=== PATIENT | male | born 1980 | race Caucasian/White ===

== ENCOUNTER 2016-12-05 19:46 | Emergency (ER) | payer OTHER ==
[~2016-12-05] VITALS: Ht 167.6 cm; Wt 100.0 kg
[~2016-12-05 19:46] MED LIST: DIPH25CA6 PO; PRED20TA PO
[2016-12-05 20:02] VITALS: Ht 167.6 cm; Wt 100.0 kg
[2016-12-05] MEDS ORDERED: BEN50 PO (20:15)
[2016-12-05] MEDS ORDERED: POLY10DR19 BOTH EYES (20:15)
--- NOTE | 2016-12-05 20:29 | ERD ---
ER Documentation Chief Complaint Date/Time DATE: 12/05/16 TIME: 20:19 Chief Complaint redness both eyes, more on right eye x 1 day, states was working on trash HPI 36-year-old male presents to ED with chief complaint of gradual onset bilateral eye redness and discomfort 1 day. Patient states symptoms began after he was taking out the trash and felt him drops of trash going to his eyes. Then he noticed bilateral scleral erythema, worse on the right side. He's also noticed yellow purulent discharge, crusting, and pruritus. He denies pain with moving his eyes in different directions, swelling around his eyes, changes in vision, and photophobia. He has not tried any medications for relief of his symptoms. Currently rates his discomfort a 5 out of 10 in severity. Denies use of contact lenses and glasses. ROS All systems reviewed and are negative except as per history of present illness. Medications Home Meds Active Scripts Diphenhydramine Hcl* (Benadryl*) 50 Mg Cap, 50 MG PO Q6H Y for ITCHING/RASH, # 30 CAP Prov:Karyna Morfin PA-C 12/05/16 Polymyxin B Sulfate-TMP* (Polymyxin B-TMP Eye Drops*) 10 Ml Drops, 1 DROP BOTH EYES QID for 7 Days, EA Prov:Karyna Morfin PA-C 12/05/16 Diphenhydramine Hcl* (Diphenhydramine Hcl*) 25 Mg Capsule, 25 MG PO Q6 Y for ITCHING for 5 Days, CAP Prov:SCOTTY DUNCAN NP 05/12/16 Prednisone (Prednisone) 20 Mg Tablet, 20 MG PO DAILY for 4 Days, TAB Prov:SCOTTY DUNCAN NP 05/12/16 Allergies Allergies: Coded Allergies: No Known Drug Allergies (Verified Allergy, Unknown, 12/05/16) PMhx/Soc Hx Alcohol Use: No Hx Substance Use: No Hx Tobacco Use: No Physical Exam Vitals Vital Signs Date Time Temp Pulse Resp B/P Pulse Ox O2 Delivery O2 Flow Rate FiO2 12/05/16 20:02 97.8 86 20 173/89 98 Physical Exam GENERAL: Non-toxic. No apparent signs of distress. HEENT: Atraumatic. Bilateral eyes are PERRL EOM intact. Bilateral injection, bilateral scleral erythema, and mild amount of purulent discharge in right eye. No eyelid or lower eyelid swelling noted. No periorbital swelling. No photophobia. No pain with extraocular muscle movement. Ears: Normal tympanic membrane, no erythema or bulging. No ear canal swelling. No ear discharge. Nose : no nasal discharge. Throat: Oropharynx normal. Tongue pink and moist. No tonsillar swelling or tonsillar exudates. No lymphadenopathy. LUNGS: Clear to auscultation. No accessory muscle use. No wheezing, no crackles. No signs or symptoms of respiratory distress. HEART: Regular rate and rhythm. No murmurs, clicks, rubs or gallops. SKIN: There is no apparent rash, petechiae, erythema or swelling. Good skin turgor. Procedures/MDM Patient presented with complaint of bilateral eye redness, worse on the right side. On exam he had bilateral scleral erythema, injection and mild purulent discharge from the right eye. States symptoms began after he believes trash when into his eye. Started worse only on the right side and then symptoms began in the left eye as well. He notes associated pruritus. However denies pain with extraocular muscle movement, photophobia, and sudden onset pain. He has no periorbital swelling. Physical exam findings and symptoms are likely due to bacterial conjunctivitis vs viral conjunctivitis. Patient denies contacts with similar symptoms, this along with findings of purulent discharge making bacterial conjunctivitis more likely. As a result I'll be prescribing antibiotic eyedrops, Polytrim. In addition the patient complains of pruritus around the eye for which I prescribed Benadryl. Sedating effects of this medication were discussed, patient advised not to drive or operate heavy machinery while use. Patient does not work contacts or glasses, he denies changes in vision. At this mild low suspicion for corneal abrasion, corneal ulcer, acute angle- closure glaucoma, pre-and post septal cellulitis, UV keratitis, and retinal detachment. Patient is stable for discharge and outpatient management. Advised to follow-up with PCP or community clinic in 1-2 days. Strict return precautions discussed. Departure Diagnosis: Primary Impression: Eye redness Additional Impression: Bacterial conjunctivitis of both eyes Condition: Good Patient Instructions: Conjunctivitis Caused by Infection Additional Instructions: Llame al doctor RAULANA y walter dayton ARLENE PARA DENTRO DE 1-2 PAUL.Dgale a la secretaria que nosotros le instruimos hacer esta arlene.Avise o llame si madden condicin se empeora antes de la arlene. Regresa aqui si peor o no mejor. La medicina que se le recet puede causarle sueo.NO DEBE MANEJAR NI OPERAR MAQUINARIAS PELIGROSAS mientras esta tomando esta medicina! Karyna Morfin PA-C Dec 05, 2016 20:29
== END 2016-12-05 20:17 | disposition home or self-care (01) ==
LOC: E/R 19:46
DX: H57.8 Other specified disorders of eye and adnexa (principal); H10.023 Other mucopurulent conjunctivitis, bilateral
CPT/HCPCS: 99283